=== PATIENT | male | born 1995 | race Caucasian/White ===

== ENCOUNTER 2022-04-13 17:29 | Inpatient (IN) | payer SELFPAY ==
[2022-04-13] VITALS (10 sets, daily range): BP systolic 70–129; BP diastolic 47–71; PULSE 54–113; RESP 14–21; TEMP 36.8; O2SAT 96–100; BMI 29.4
--- NOTE | 2022-04-13 17:44 | W.ED.OVERDOS ---
HPI - Overdose General: Chief Complaint: Overdose Stated Complaint: OVERDOSE Time Seen by Provider: 04/13/22 17:32 Source: patient Mode of arrival: ambulatory Limitations: no limitations History of Present Illness: 26-year-old male brought in by EMS after suicide attempt. Patient took a large number of ibuprofen and then took potentially as much as 60 mg of lorazepam concentrate 2 mg/mL. He took the lorazepam about 30 minutes prior to arrival NeoProfen about an hour and a half prior to arrival. He is sedate but still conscious and able to answer questions. He is arousable. He denies any chest pain or any other injuries. Him and his got into a fight and he took the medicines in attempt to kill himself. complaint: intentional overdose Onset (ago): hour(s) Intent: suicide attempt Context: Intentional Overdose: relationship problems Associated symptoms: depression Treatments Prior to Arrival: none Review of Systems General: Reports: Other (Limited review of systems due to patient's sedation) Const: Denies: fever(s), chills, body aches, change in appetite, fatigue or malaise ENMT: Denies: throat pain, ear or mastoid pain, nasal discharge or nasal congestion Card: Denies: chest pain, edema, dyspnea on exertion or orthopnea Resp: Denies: dyspnea, productive cough or non-productive cough GI: Denies: abdominal pain, nausea, vomiting, hematemesis, coffee ground emesis, diarrhea, constipation, bloating, hematochezia or melena : Denies: flank pain, dysuria, urinary frequency or urinary urgency Skin/Breast: Denies: rash or pruritus COUNTS INCLUDE 234 BEDS AT THE [facility] ED PFSH: Medical History No pertinent past medical history Surgical History No pertinent past surgical history Family History Denies family history of Diabetes Social History Smoking and tobacco status: current every day smoker Alcohol intake: current Alcohol intake frequency: 3 or more drinks per day Alcohol type: hard liquor Supplemental COUNTS INCLUDE 234 BEDS AT THE [facility] Information: due to medical condition and due to mental status ([facility] sedate) Physical Exam Const: GENERAL APPEARANCE: cooperative and lethargic ORIENTATION/CONSCIOUSNESS: Yes lethargic HENMT: COMMON NORMALS: normocephalic, atraumatic and hearing grossly normal bilaterally HEAD & SCALP: normocephalic and atraumatic Eye: COMMON NORMALS: Equal, round and reactive pupils present, EOMs intact bilaterally, conjunctivae normal and no scleral icterus CONJUNCTIVA: Yes conjunctivae normal PUPIL: Yes Equal, round and reactive pupils present Neck/C-Spine: COMMON NORMALS: full ROM, no lymphadenopathy, supple and no JVD Resp: COMMON NORMALS: normal respiratory effort, No retractions, No use of accessory muscles and clear to auscultation bilaterally AUSCULTATION: clear to auscultation bilaterally Cardio: COMMON NORMALS: no JVD, regular rate, regular rhythm and No murmurs present (Cardio) RATE: regular rate RHYTHM: regular rhythm GI: COMMON NORMALS: Soft to palpation and No hepatosplenomegaly present AUSCULTATION: Yes normoactive bowel sounds PALPATION: Yes Soft to palpation, No Tenderness to palpation present (GI), No Guarding due to palpation present (GI) and Yes No hepatosplenomegaly present Extremity: COMMON NORMALS: normal to inspection, capillary refill normal, no clubbing, cyanosis or edema, no calf tenderness and no pedal edema Neuro: SENSORIUM/ORIENTATION: Yes lethargic Skin: COMMON NORMALS: no rashes or lesions noted GENERAL SKIN EXAM: no rashes or lesions noted Course Vital Signs: Vital signs: Vital Signs Temperature 98.2 F 04/17/22 13:19 Pulse Rate 85 04/17/22 13:19 Respiratory Rate 18 04/17/22 13:19 Blood Pressure 129/78 04/17/22 13:19 Pulse Oximetry 97 04/17/22 13:19 MDM - Overdose Medical Decision Making Admit to ICU with psychiatry consult. Patient extremely sedated will need medical monitoring before moving to MPU. Medical Records I reviewed the patient's medical records. Lab Data I reviewed the patient's lab results. : 04/14/22 01:45 04/14/22 01:45 Radiology Impressions Chest X-Ray 04/13/22 18:00 IMPRESSION: Normal chest radiograph. Laboratory Results WBC 6.8 10^3/uL (4.0-10.0) 04/13/22 17:13 RBC 4.89 10^6/uL (4.1-5.3) 04/13/22 17:13 Hgb 14.8 g/dL (11.7-16.6) 04/13/22 17:13 Hct 43.5 % (42.0-52.0) 04/13/22 17:13 MCV 89.0 fl (80-94) 04/13/22 17:13 MCH 30.3 pg (28.0-34.0) 04/13/22 17:13 MCHC 34.0 g/dL (30.0-36.0) 04/13/22 17:13 RDW 12.3 % (12.1-15.1) 04/13/22 17:13 Plt Count 264 10^3/cmm (130-400) 04/13/22 17:13 MPV 10.6 fL (7.4-10.4) H 04/13/22 17:13 Neut % (Auto) 58.8 % 04/13/22 17:13 Lymph % (Auto) 28.9 % 04/13/22 17:13 [place] % (Auto) 9.6 % 04/13/22 17:13 Eos % (Auto) 2.1 % 04/13/22 17:13 Baso % (Auto) 0.3 % 04/13/22 17:13 Neut # (Auto) 3.99 10^3/uL (1.8-7.7) 04/13/22 17:13 Lymph # (Auto) 2.0 10^3/uL (0.8-4.8) 04/13/22 17:13 [place] # (Auto) 0.7 10^3/uL (0.2-0.9) 04/13/22 17:13 Eos # (Auto) 0.1 10^3/uL (0.0-0.8) 04/13/22 17:13 Baso # (Auto) 0.0 10^3/uL (0.0-0.1) 04/13/22 17:13 Nucleated RBC % (auto) 0 % 04/13/22 17:13 Nucleated RBCs # 0.0 /100WBC 04/13/22 17:13 Specimen Type Arterial 04/13/22 19:37 Sample Site Radial, right 04/13/22 19:37 ABG pH 7.37 (7.35-7.45) 04/13/22 19:37 ABG pCO2 43.7 mmHg (35-45) 04/13/22 19:37 ABG pO2 130.0 mmHg (80.0-100.0) H 04/13/22 19:37 ABG HCO3 24.9 mmol/L (22-26) 04/13/22 19:37 ABG Base Excess -0.6 mmol/L (-2.0-2.0) 04/13/22 19:37 Rickey Test Pos 04/13/22 19:37 Hematocrit 42.3 % (42-52) 04/13/22 19:37 O2 Delivery Device Nc 04/13/22 19:37 O2 Liters/Min 2.0 % 04/13/22 19:37 Shearing Machine Operator ID [place] 04/13/22 19:37 Sodium 139 mmol/L (136-145) 04/13/22 17:13 Potassium 3.1 mmol/L (3.5-5.1) L 04/13/22 17:13 Chloride 101 mmol/L (98-107) 04/13/22 17:13 Carbon Dioxide 21 mmol/L (22-29) L 04/13/22 17:13 Anion Gap 20.1 (5-19) H 04/13/22 17:13 BUN 11 mg/dL (6-20) 04/13/22 17:13 Creatinine 1.0 mg/dL (0.7-1.2) 04/13/22 17:13 GFR Calculation 90.3 mL/min (90-130) 04/13/22 17:13 Glucose 102 mg/dL (65-115) 04/13/22 17:13 Calculated Osmolality 288 mOsm/kg (285-295) 04/13/22 17:13 Calcium 9.1 mg/dL (8.5-10.5) 04/13/22 17:13 Total Bilirubin 0.5 mg/dL (0.15-1.2) 04/13/22 17:13 AST 25 U/L (0-40) 04/13/22 17:13 ALT 18 U/L (0-41) 04/13/22 17:13 Alkaline Phosphatase 83 IU/L (40-130) 04/13/22 17:13 Ammonia 32 umol/L (16-60) 04/13/22 19:58 Troponin T Baseline 6 ng/L (0-15) 04/13/22 19:58 Troponin T 120 Minute 6.00 ng/L (0-15) 04/13/22 21:28 Delta Troponin T 0 ABS# (0-10) 04/13/22 21:28 Total Protein 7.4 g/dL (6.6-8.7) 04/13/22 17:13 Albumin 4.5 g/dL (3.5-5.2) 04/13/22 17:13 Globulin 2.9 g/dL (1.3-4.6) 04/13/22 17:13 Urine Color [place] (Yellow) 04/13/22 18:12 Urine Appearance Clear (CLEAR) 04/13/22 18:12 Urine pH 5 (5-7) 04/13/22 18:12 Ur Specific [place] 1.020 (1.005-1.030) 04/13/22 18:12 Urine Protein Trace (Negative) 04/13/22 18:12 Urine Glucose (UA) Norm (Normal) 04/13/22 18:12 Urine Ketones 2+ (Negative) H 04/13/22 18:12 Urine Blood Neg (Negative) 04/13/22 18:12 Urine Nitrate Negative (Negative) 04/13/22 18:12 Urine Bilirubin 1+ (Negative) H 04/13/22 18:12 Urine Urobilinogen 8 mg/dL (Negative) H 04/13/22 18:12 Ur Leukocyte Esterase 1+ (Negative) H 04/13/22 18:12 Urine RBC 0-4 /hpf (0-2) H 04/13/22 18:12 Urine WBC 25-40 /hpf (0-5) H 04/13/22 18:12 Ur Squamous Epith Cells 0-4 /hpf (0-5) H 04/13/22 18:12 Amorphous Sediment Not Reportable 04/13/22 18:12 Urine Bacteria 1+ /hpf (NONE) H 04/13/22 18:12 Salicylates < 0.3 mg/dL (3-10) L 04/13/22 17:13 Urine Opiates Screen Positive ng/mL (Negative) H 04/13/22 18:12 Acetaminophen < 5.0 ug/mL (10-30) L 04/13/22 17:13 Ur Barbiturates Screen Negative ng/mL (Negative) 04/13/22 18:12 Ur Phencyclidine Scrn Negative ng/mL (Negative) 04/13/22 18:12 Ur Amphetamines Screen Negative ng/mL (Negative) 04/13/22 18:12 U Benzodiazepines Scrn Positive ng/mL (Negative) H 04/13/22 18:12 Urine Cocaine Screen Negative ng/mL (Negative) 04/13/22 18:12 U Marijuana (THC) Screen Positive ng/mL (Negative) H 04/13/22 18:12 Ethyl Alcohol < 10 mg/dL (0-10) 04/13/22 19:58 Discharge Plan Discharge Patient Disposition: Admitted As Inpatient Admit Provider: Linda Blanchard Clinical Impression: Benzodiazepine overdose, Suicide attempt by multiple drug overdose Condition: Stable Discharge Diet: Regular Discharge Activity: Resume usual activity Coding Level of Care Code ED Continuous Improvement Facilitator for Chg Fwd Exam Comprehensive
[2022-04-13 17:57] LABS: Basophils % 0.3 %; Eosinophils # 0.1 10^3/uL (0.0-0.8); Eosinophils % 2.1 %; Hematocrit 43.5 % (42.0-52.0); Hemoglobin 14.8 g/dL (11.7-16.6); Lymphocytes % 28.9 %; Mean Corpuscular Hemoglobin 30.3 pg (28.0-34.0); Mean Platelet Volume 10.6 fL (7.4-10.4); Monocytes # 0.7 10^3/uL (0.2-0.9); Monocytes % 9.6 %; Neutrophils # 3.99 10^3/uL (1.8-7.7); Neutrophils % 58.8 %; Nucleated Red Blood Cells % 0 %; Platelet Count 264 10^3/cmm (130-400); Red Blood Count 4.89 10^6/uL (4.1-5.3); Red Cell Distribution Width 12.3 % (12.1-15.1); White Blood Count 6.8 10^3/uL (4.0-10.0)
--- NOTE | 2022-04-13 18:00 | XRR_ITS ---
PROCEDURE INFORMATION: Exam: XR Chest Exam date and time: 04/13/2022 6:11 PM Age: 26 years old Clinical indication: Other: Unconscious; Additional info: Overdose TECHNIQUE: Imaging protocol: XR of the chest. Views: 1 view. COMPARISON: CR Chest 2 views* 23030 10/06/2017 12:29 PM FINDINGS: Lungs: The lungs are clear. Pleural spaces: Unremarkable. No pleural effusion. No pneumothorax. Heart/Mediastinum: Unremarkable. No cardiomegaly. Bones/joints: Unremarkable. XR/XR chest 1V portable [id number] IMPRESSION: Normal chest radiograph.
[2022-04-13] MEDS: pantoprazole 40 mg SDV 80 MG IVP (18:03)
[2022-04-13 18:08] LABS: Acetaminophen < 5.0 ug/mL (10-30); Alanine Aminotransferase 18 U/L (0-41); Albumin Level 4.5 g/dL (3.5-5.2); Alcohol Level < 10 mg/dL (0-10); Alkaline Phosphatase 83 IU/L (40-130); Anion Gap 20.1 (5-19); Aspartate Amino Transferase 25 U/L (0-40); Blood Urea Nitrogen 11 mg/dL (6-20); Calcium 9.1 mg/dL (8.5-10.5); Carbon Dioxide 21 mmol/L (22-29); Chloride 101 mmol/L (98-107); Creatinine Clr Calc Pharmacy 116.8025; Globulin 2.9 g/dL (1.3-4.6); Glomerular Filtration Rate 90.3 mL/min (90-130); Glucose 102 mg/dL (65-115); Osmolality Calculated 288 mOsm/kg (285-295); Potassium 3.1 mmol/L (3.5-5.1); Salicylate < 0.3 mg/dL (3-10); Sodium 139 mmol/L (136-145); Total Bilirubin 0.5 mg/dL (0.15-1.2); Total Protein 7.4 g/dL (6.6-8.7)
[2022-04-13 18:35] LABS: Amphetamines Screen Urine Negative (Negative); Barbiturates Screen Urine Negative (Negative); Benzodiazepines Screen Urine Positive (Negative); Cocaine Screen Urine Negative (Negative); Opiate Screen Urine Positive (Negative); PCP Screen Urine Negative (Negative); THC Screen Urine Positive (Negative)
[2022-04-13 18:39] LABS: Bilirubin Urine 1+ (Negative); Blood Urine Neg (Negative); Glucose Urine UA Norm (Normal); Ketones Urine 2+ (Negative); Nitrate Urine Negative (Negative); Protein Urine Trace (Negative); Urine Appearance Clear (CLEAR); Urine Color Orange (Yellow); pH Urine 5 (5-7)
--- NOTE | 2022-04-13 18:39 | PM.HP ---
Providers/Chief Complaint Chief Complaint: OVERDOSE History of Present Illness Nathan Feliciano is a 26 year old male who presented to hospital after suicidal attempt. After he did argument with his he tried to end his life by taking liquid lorazepam, he was told lorazepam from his [id number] storage, I looked at the bottle, as per the it was 3/4 filled, 2 mg/mL) it is 30 mL bottle. He drinks more than 2 shots of hard liquor as well. He works for his at [employer] and [employer]. In the ER he is hypertensive, bradycardic, no respiratory depression No acute indication for flumazenil, will give him 2 L bolus He is drowsy and obtunded is at the bedside In case of any signs of respite depression would use flumazenil however conservative management for now, 96-hour hold, check alcohol level Review of Systems General: Reports: ROS unobtainable due to medical condition PFSH Acute PFSH: Medical History (Updated 04/13/22 @ 19:14 by Linda Blanchard MD) No pertinent past medical history Surgical History (Updated 04/13/22 @ 19:14 by Linda Blanchard MD) No pertinent past surgical history Family History (Updated 04/13/22 @ 19:14 by Linda Blanchard MD) Denies family history of Diabetes Social History (Updated 04/13/22 @ 19:14 by Linda Blanchard MD) Smoking and tobacco status: current every day smoker Alcohol intake: current Alcohol intake frequency: 3 or more drinks per day Alcohol type: hard liquor Substance/Drug Use: current Substance/Drug use type: Marijuana Vitals/I&O/Wt Last Vital Signs Temp 98.3 F 04/13/22 17:32 Pulse 79 04/13/22 18:13 Resp 18 04/13/22 18:13 BP 129/59 04/13/22 18:13 Pulse Ox 97 04/13/22 18:13 Weight last 48 hrs Weight 85.275 kg Physical Exam Narrative: Young male Obtunded Not opening his eyes to painful stimuli Bradycardic Hypotensive Heart rate ranged between 60-65 He keeps tossing in bed changing his position however he does not open his eyes To move his extremities S1, S2 Abdomen soft Currently saturating well on 2 L nasal cannula Data : 04/13/22 17:13 04/13/22 17:13 A&P Assessment and plan (1) Benzodiazepine overdose: Status: Acute (2) Suicidal behavior with attempted self-injury: Status: Acute Plan Suicide attempt Patient took liquid lorazepam we cannot quantify the dose Conservative management for now No signs of respiratory depression Sinus bradycardia could be secondary to hypothermia I will do serial troponin and EKG Check QTC intervals For hypotension I will give him 2 L bolus I have updated ER nurse as well, ER nurses Guy Admit to ICU 96 hr hold Check alcohol level I will add thiamine and folic acid is at the bedside He is full code Clear liquid once he is more awake and alert Hold off on flumazenil, in case of any signs of respiratory depression he might qualify he does not take antidepressants or benzodiazepines at home chronically Attestations Medical Necessity Statement*: Admit to ICU with suicidal attempt, 96-hour hold Time Spent in Patient Care: 40mins Coding Level of Care Code Acute Cytopathology Technologist for Chg Fwd Diagnoses Benzodiazepine overdose T42.4X1A Suicidal behavior with attempted self-injury T14.91XA
[2022-04-13 18:40] LABS: Add Urine Culture? Yes; Add Urine Microscopic? YES; Bacteria Urine 1+ /hpf; Leukocyte Esterase Urine 1+ (Negative); RBC Urine 0-4 /hpf (0-2); Squamous Epithelial Cell Urine 0-4 /hpf (0-5); Urobilinogen Urine 8 mg/dL (Negative); WBC Urine 25-40 /hpf (0-5)
--- NOTE | 2022-04-13 19:12 | ECG_ITS ---
[facility] Test Date: 2022-04-13 Pat Name: Nathan Feliciano Department: Room: Gender: Male Skid Man: : 1995 Requested By: Linda Blanchard Order Number: [id number] Ashutosh MD: Anthony Hoover M.D. Measurements Intervals [place] Rate: 54 P: 3 W[place]: 136 QRS: 4 QRSD: 110 T: 29 QT: 444 QTc: 423 Interpretive Statements SINUS BRADYCARDIA INCOMPLETE RIGHT BUNDLE BRANCH BLOCK [90+ ms QRS DURATION, TERMINAL R IN V1/V2, 40+ ms S IN I/aVL/V4/V5/V6] No previous ECG available for comparison Electronically Signed On 04-14-2022 17:55:05 CDT by Anthony Hoover M.D. [id number]
[2022-04-13] MEDS: lactated ringers 1,000 ML 999 ML IV ×2 (19:24→23:47)
[2022-04-13 19:48] LABS: ABG PCO2 43.7 mmHg (35-45); ABG PH Result 7.37 (7.35-7.45); Arterial Blood Gas Hematocrit 42.3 % (42-52); Base Excess ABG -0.6 mmol/L (-2.0-2.0); Blood Gas Allen Test Pos; Blood Gas Operator Identificat WALCI; Blood Gas Sample Site Radial, right; Blood Gas Sample Type Arterial; HCO3 ABG 24.9 mmol/L (22-26); Oxygen Device NC
[2022-04-13 20:38] LABS: Troponin(5th) Baseline 6 ng/L (0-15)
[2022-04-13 20:40] LABS: Alcohol Level < 10 mg/dL (0-10)
[2022-04-13 20:43] LABS: Ammonia 32 umol/L (16-60)
--- NOTE | 2022-04-13 21:04 | PC.PHAR ---
pt unable to verify do to overdose. nothing in pt profile for contacts or external med history or pharmacy
[2022-04-13 21:58] LABS: Troponin 5 2HR Delta 0 ABS# (0-10)
[2022-04-14] VITALS (131 sets, daily range): BP systolic 91–143; BP diastolic 50–91; PULSE 51–94; RESP 0–26; TEMP 36.5–37.1; O2SAT 94–100; BMI 29.4
[2022-04-14] MEDS: sodium chloride 0.9% 1,000 ML 75 ML IV (00:28)
--- NOTE | 2022-04-14 01:12 | ECG_ITS ---
[facility] Test Date: 2022-04-14 Pat Name: Nathan Feliciano Department: Room: ICU10 Gender: Male Director It Project: : 1995 Requested By: Linda Blanchard Order Number: [id number] Ashutosh MD: Anthony Hoover M.D. Measurements Intervals [place] Rate: 57 P: 18 [place]: 150 QRS: 56 QRSD: 109 T: 70 QT: 423 QTc: 415 Interpretive Statements SINUS BRADYCARDIA Compared to ECG 04/13/2022 20:46:29 Incomplete right bundle-branch block no longer present Electronically Signed On 04-14-2022 18:12:09 CDT by Anthony Hoover M.D. [email or web address]/store/[id number]
[2022-04-14 03:08] LABS: Basophils % 0.3 %; Eosinophils # 0.2 10^3/uL (0.0-0.8); Eosinophils % 2.3 %; Hematocrit 42.6 % (42.0-52.0); Hemoglobin 14.1 g/dL (11.7-16.6); Lymphocytes # 1.8 10^3/uL (0.8-4.8); Lymphocytes % 18.4 %; Mean Corpuscular HGB Conc 33.1 g/dL (30.0-36.0); Mean Corpuscular Volume 90.6 fl (80-94); Mean Platelet Volume 10.9 fL (7.4-10.4); Monocytes # 0.9 10^3/uL (0.2-0.9); Monocytes % 9.5 %; Neutrophils # 6.82 10^3/uL (1.8-7.7); Neutrophils % 69.2 %; Nucleated Red Blood Cells % 0 %; Platelet Count 214 10^3/cmm (130-400); Red Cell Distribution Width 12.5 % (12.1-15.1); White Blood Count 9.9 10^3/uL (4.0-10.0)
[2022-04-14 03:42] LABS: Alanine Aminotransferase 16 U/L (0-41); Albumin Level 4.1 g/dL (3.5-5.2); Alkaline Phosphatase 79 IU/L (40-130); Aspartate Amino Transferase 20 U/L (0-40); Blood Urea Nitrogen 9 mg/dL (6-20); C Reactive Protein 22.1 mg/L (0.0-4.9); Calcium 9.1 mg/dL (8.5-10.5); Carbon Dioxide 24 mmol/L (22-29); Chloride 106 mmol/L (98-107); Creatine Phosphokinase 115 U/L (39-308); Globulin 2.7 g/dL (1.3-4.6); Glomerular Filtration Rate 116.9 mL/min (90-130); Glucose 76 mg/dL (65-115); Lactate Dehydrogenase 177 U/L (135-225); Magnesium 2.3 mg/dL (1.7-2.3); Osmolality Calculated 289 mOsm/kg (285-295); Phosphorus 3.9 mg/dL (2.5-4.5); Sodium 141 mmol/L (136-145); Total Bilirubin 0.5 mg/dL (0.15-1.2); Total Protein 6.8 g/dL (6.6-8.7)
[2022-04-14 04:07] LABS: Troponin 5 6HR Delta 0 ng/L (0-12)
--- NOTE | 2022-04-14 08:32 | PC.NURSE ---
Patient jewelry removed : Necklace, green earrings, and gold colored ring. Placed in plastic bag with patient sticker and locked in [employer] machine box number 12.
[2022-04-14] MEDS: folic acid 1 mg Tablet PO (09:23)
--- NOTE | 2022-04-14 09:54 | PC.CHAP ---
Pastoral Care Encounter/Spiritual Assessment Type of Contact [] Declined saw sharpener visit [] Patient/Family/Request visit [] Outpatient visit [] Follow-up visit [] Physician referral [] Code/Alert [x] Routine visit [] Staff referral [] Actively dying [x] Patient sleeping [] Family support [] [] Out of room [] Palliative care [] [] Receiving care in room [] Pre-surgical visit [] Trauma [] Long length of stay [x] ICU visit [x] Other: sitter Relational/Emotional Strength [] Patient feels connected with others/family/visitors/staff [] Distress [] Loneliness/isolation [] Abandonment Spirituality of Patient [] Person of [place] [] Attends Zoroastrian of their [place] [] Believes in Prayer [] Reads Bible or Taoism materials [] There are Spiritual issues to be addressed Note Teller Interventions [x] Prayer [] Active listening [] Non-anxious presence [] Spiritual/emotional support [] Crisis/trauma care [] Spiritual counseling [] Bereavement support [] Provided bereavement packet [] Provided Bible/devotional materials [] Provided toy/stuffed animal, coloring book to patient or family member [] Provided Communion [] Anointing/[place] [] Salvation [x] Completed spiritual assessment [] Other: Impact on Illness or Injury [] Angry [] Fearful [] Anxious [] Often cries [] Exhaustion [] Unable to work [] Unable to attend anabaptism [] Unable to walk/stand [] Unable to read [] Unable to drive [] Unable to eat/drink [] Unable to sleep [] Unable to be with family [] Patient intubated [] Other: Summary Time spent with patient
--- NOTE | 2022-04-14 14:34 | PM.PN ---
Subjective Subjective: Patient hemodynamically stable, tolerating diet, no respiratory depression, hemodynamically stable, discontinuing fluids, we will be able to transfer him to neuropsych today Patient is very emotionally labile stating that there is no point of living endorsing 3 through 12 times in the past few months Vitals/I&O/Wt Last Vital Signs Temp 97.9 F 04/14/22 07:30 Pulse 60 04/14/22 14:10 Resp 15 04/14/22 14:10 BP 142/78 04/14/22 14:10 Pulse Ox 98 04/14/22 14:10 04/13/22 04/14/22 04/14/22 22:59 06:59 14:59 Intake Total 1000 / 1000 1000 / 2000 1192.5 / 1192.5 Output Total 850 / 850 Balance 1000 / 1000 150 / 1150 1192.5 / 1192.5 Weight last 48 hrs Weight 85.275 kg Physical Exam Narrative: Neck Awake and alert Able to appropriately state events at home Hemodynamically stable Abdomen soft Saturating well on room air Nonfocal neuro exam No signs of respiratory depression Urinary Catheter Management: Burton: Cath Placed During This Visit: yes Reason for Continuing Indwelling Catheter: Accurate Measurement of Urinary Output in Critically Ill Patients Urinary Catheter Date of Insertion: 04/13/22 Urinary Catheter Time of Insertion: 18:00 Data : 04/14/22 01:45 04/14/22 01:45 A&P Assessment and plan (1) Suicidal behavior with attempted self-injury: Status: Acute (2) Benzodiazepine overdose: Status: Acute Plan Liquid lorazepam overdose No signs of respiratory depression Hemodynamically stable Tolerating his diet Advance diet Neuropsych does not have any beds available Will transfer once they have a bed Advance diet Continue thiamine and folic acid Patient is emotionally labile I will let Dr. Vazquez add antidepressants DVT prophylaxis not indicated patient is young and mobile Full code Attestations Medical Necessity Statement*: Can be transferred out of ICU to neuropsych Time Spent in Patient Care: 30min Coding Level of Care Code Acute Inspector Rough Castings for Parvezg Fwd Diagnoses Suicidal behavior with attempted self-injury T14.91XA Benzodiazepine overdose T42.4X1A
--- NOTE | 2022-04-14 16:28 | NUR.SHIFT ---
Patient transferred to NPU 151-1. In care of nurse and OUTREACH EDUCATOR in room. Jewelry and paper chart left with director of front office staff.
[2022-04-15 06:00] VITALS: BP 118/59; PULSE 55; RESP 17; TEMP 36.6; O2SAT 99
--- NOTE | 2022-04-15 07:34 | P.NPUHP_ITS ---
Providers/Chief Complaint Admitting Physician: Linda Blanchard MD Chief Complaint: OVERDOSE HPI NPU History of Present Illness Nahtan Feliciano is a 26 year old male who was admitted to our emergency department with the following report: HPI: [42]yo patient w/ hx of depression presenting for SI with plan. Patient was planning to jump in front of traffic. On arrival, the patient is AAOx3 and cooperative with my evaluation. No focal complaints of chest pain, shortness of breath, palpitations, N/V, focal GI/ complaints. Currently denies HI. No complaints of hallucinations. He required stabilization in the ICU for approximately 24 hours and then was transferred to the neuropsychiatry unit for definitive treatment of these issues. This last year has been very bad for him. His vufvdo-wd-zrc about 1 year ago. He happened to be there at the time and his father in law in his arms. He said many people in the family blamed everyone else for not being good enough to the xckvte-ib-lot. They also blamed him for not being a good enough to his . His wanted to have open relationships and he has had 3 affairs. His rules were that she could not fall in love with him and she must use a condom or have testing prior to having sex with these guys. She has not followed those rules. She is several times as put time with her boyfriend's ahead of time with the family. She said that it is very embarrassing for him. Her family members were considering an intervention because of her behavior. He has a full spectrum of depressive symptoms including difficulty with sleep, decreased decreased energy, decreased motivation, increased guilt, suicidal ideation and decreased self-esteem. He has several obsessive-compulsive symptoms. His game room has to be exactly his way and he gets extremely upset if anything in his game room gets disturbed. He makes his bed meticulously in the morning and immediately inspects that when he gets home and confronted his if it is not the same way that he left it. He has always had difficulty getting to sleep. He is irritable. He has difficulty concentrating. He has some social anxiety but does not have any difficulty talking to people or being out in public. His childhood was not good. His mother has been 6 times in his father twice. He says he never got anything from them. Maybe some emotional abuse but they were never providing anything more than food and a physical environment. He was very close to his xvzcks-zc-kjj and they spent a lot of time doing things. His vpfeom-cu-foz was especially interested in guns. They watched many videos about guns. He says that he has tried to get mental health treatment before but the therapist that he has seen have not been helpful. He has never had medication treatment and he has never been in the hospital. He uses some sort of cannabinoid for headaches and it helps him sleep. He denies alcohol or drug abuse otherwise. 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 He has gone from making $12,000 a year up to $90,000 a year. His is the computer hardware technician of the business and her mother also works for them. The business is still doing well. PAST PSYCHIATRIC HISTORY As above SOCIAL HISTORY As above Meds NPU Home Medications Medication Instructions Recorded Confirmed Last Taken Type Unable to Assess 04/13/22 04/13/22 Unknown History Allergies Allergy/AdvReac Type Severity Reaction Status Date / Time No Known Allergies Allergy Verified 04/14/22 00:46 PFS NPU PFS: Medical History (Updated 04/15/22 @ 07:44 by Ezra Wiggins MD) No pertinent past medical history Surgical History (Updated 04/13/22 @ 19:14 by Linda Blanchard MD) No pertinent past surgical history Family History (Updated 04/13/22 @ 19:14 by Linda Blanchard MD) Denies family history of Diabetes Social History (Updated 04/13/22 @ 19:14 by Linda Blanchard MD) Smoking and tobacco status: current every day smoker Alcohol intake: current Alcohol intake frequency: 3 or more drinks per day Alcohol type: hard liquor Substance/Drug Use: current Substance/Drug use type: Marijuana Mental Status Exam MSE Comments: This is an overweight 26-year-old male who appears approximately his stated age and is in no acute distress. He is fairly well groomed and in hospital scrubs. He is pleasant and cooperative with the evaluation. He was found at 7:15 AM doing stretching and yoga like poses in his room. psychomotor activity is normal. Speech is at a regular rate and rhythm, normal volume, good articulation, not pressured. Alert, oriented X3 Attention and concentration appears to be normal. Memory is intact Mood is depressed. Affect is moderately dysphoric. He was tearful several times during the interview. Thought process is logical and goal-directed. Thought content: Denies auditory and visual hallucinations. No delusions or paranoia are noted. Admits to suicidal ideation for some time before taking the overdose. Denies current suicidal ideation in the hospital. He denies homicidal ideation. Fund of knowledge is average. Insight and judgment appear to be fair. Impulse control is poor. Vitals/I&O/Wt Last Vital Signs Temp 97.8 F 04/15/22 06:00 Pulse 55 L 04/15/22 06:00 Resp 17 04/15/22 06:00 BP 118/59 04/15/22 06:00 Pulse Ox 99 04/15/22 06:00 Weight last 48 hrs Weight 85.275 kg Weight 85.275 kg Physical Exam Urinary Catheter Management: Burton: Cath Placed During This Visit: yes Reason for Continuing Indwelling Catheter: Accurate Measurement of Urinary O utput in Critically Ill Patients Urinary Catheter Date of Insertion: 04/13/22 Urinary Catheter Time of Insertion: 18:00 Data NPU : 04/14/22 01:45 04/14/22 01:45 A&P Assessment and plan (1) Major depressive disorder: Status: Acute (2) Anxiety: Status: Acute (3) Suicidal behavior with attempted self-injury: Status: Acute (4) Benzodiazepine overdose: Status: Acute Plan This is a 26-year-old male with anxiety and depression which have never been treated. He took an overdose of Ativan requiring ICU stabilization. Plan: 1. Continue current medication. We will start Prozac 20 mg daily along with standard as needed medications 2. Continue every 15 minute checks for safety. 3. Encourage individual, group and milieu therapies. 4. Encourage sober living treatment after discharge at the highest level of care to which he is willing to commit. 5. We will monitor for safety for himself in the community prior to discharge. Attestations NPU Medical Necessity Statement*: Inpatient hospitalization is medically necessary and the clinically appropriate intervention at this time. We will initiate medications and make changes as indicated. He will be in the hospital for over 2 midnights. Likely length of stay 4-6 days Coding Level of Care Code Acute Account Consultant for [facility] Diagnoses Major depressive disorder F32.9 Anxiety F41.9 Suicidal behavior with attempted self-injury T14.91XA Benzodiazepine overdose T42.4X1A
--- NOTE | 2022-04-15 08:55 | PC.NURSE ---
PT AROUSES TO VOICE. DENIES PAIN. DENIES SI AND VH AT THIS TIME. DOES ENDORESE HOMICIDAL THOUGHTS TOWARDS HIS FRIEND THAT WAS HAVING AN AFFAIR WITH HIS . PT STATES HE WALKED IN ON HIS AND BEST FRIEND HAVING SEX AND HAS WANTED TO HARM HIM EVER SINCE. PT ENDORSES HEARING HUMMING IN HIS EARS SINCE HE WAS E[age] YEARS OLD. STATES HE HAS NEVER BEEN TREATED FOR ANY PSYCHIATRIC ISSUES UNTIL NOW. PT WAS VERY TEAFUL AND SAD DURING INTERVIEW. SUPPORT VOICED
[2022-04-15] MEDS: OLANZapine 5 mg ODT PO (09:59)
[2022-04-15] MEDS: folic acid 1 mg Tablet PO (09:59)
[2022-04-15] MEDS: thiamine 100 mg Tablet PO (10:00)
[2022-04-15] MEDS: hyDROXYzine 25 mg Capsule 50 MG PO (11:56)
[2022-04-15 14:00] VITALS: BP 117/72; PULSE 62; RESP 18; TEMP 36.9; O2SAT 98
[2022-04-15 19:57] VITALS: BP 126/87; PULSE 82; RESP 16; TEMP 36.7; O2SAT 96
[2022-04-15] MEDS: trazodone 50 mg Tablet PO (20:14)
[2022-04-16 06:00] VITALS: BP 134/70; PULSE 84; RESP 18; TEMP 36.4; O2SAT 98
[2022-04-16] MEDS: folic acid 1 mg Tablet PO (08:32)
[2022-04-16] MEDS: fluoxetine 20 mg Capsule PO (08:32)
[2022-04-16] MEDS: thiamine 100 mg Tablet PO (08:32)
[2022-04-16 09:00] VITALS: PULSE 90; O2SAT 97
--- NOTE | 2022-04-16 13:40 | W.PM.NPUPNS ---
Subjective NPU Subjective: He continues to be fairly depressed. He said that he really was not trying to kill himself with the overdose but just trying to escape. However, he said he also had the thought that if he did from the overdose it would be good. I asked him if he wanted to be now he said no. I asked him if he was struck by lightening next week however that day and he said that would be his decision and he is okay with that. He is not a question but he does believe that there is a creator of the world who controls his peggy. He says that he has talked to his and she knows that he does not want her to continue seeing other people. He says she said she was willing to try it just like he was willing to try the open relationship. He does not think that she would like it. He says that just having a financial and parenting relationship might be an option. He had a long talk with the therapist from the [facility] program and felt that was very beneficial. Mental Status Exam MSE Comments: This is an overweight 26-year-old male who appears approximately his stated age and is in no acute distress. He is fairly well groomed and in hospital scrubs. He is pleasant and cooperative with the evaluation. He was found at 1:30 PM in Bible study. psychomotor activity is normal. Speech is at a regular rate and rhythm, normal volume, good articulation, not pressured. Alert, oriented X3 Attention and concentration appears to be normal. Memory is intact Mood is depressed but better. Affect is mildly dysphoric. Thought process is logical and goal-directed. Thought content: Denies auditory and visual hallucinations. No delusions or paranoia are noted. Admits to suicidal ideation for some time before taking the overdose. Denies current suicidal ideation in the hospital. He denies homicidal ideation. Fund of knowledge is average. Insight and judgment appear to be fair. Impulse control is poor. Cognition: Patient Appearance: Appropriate Level of Consciousness: Disoriented, Drowsy and Lethargic Patient Cognition Impaired: Yes Ability to Follow Directions: Poor Patient Orientation (long list): Person, Place and Time Hallucination Type: None Delusion Description: Not Present Thought Process: Appropriate Affect: Affect Description: Appropriate Behavior: Patient Behavior: Cooperative and Withdrawn Speech Pattern: Appropriate and Clear Vitals/I&O/Wt Last Vital Signs Temp 97.5 F L 04/16/22 06:00 Pulse 90 04/16/22 09:00 Resp 18 04/16/22 06:00 BP 134/70 04/16/22 06:00 Pulse Ox 97 04/16/22 09:00 Weight last 48 hrs Weight 85.275 kg Physical Exam Urinary Catheter Management: Burton: Cath Placed During This Visit: yes Reason for Continuing Indwelling Catheter: Accurate Measurement of Urinary Output in Critically Ill Patients Urinary Catheter Date of Insertion: 04/13/22 Urinary Catheter Time of Insertion: 18:00 Data NPU : 04/14/22 01:45 04/14/22 01:45 Micro: Microbiology 04/13/22 18:12 Urine Culture - Final Urine,Clean Catch Microbiology 04/13/22 18:12 Urine,Clean Catch Urine Culture - Final A&P Assessment and plan (1) Major depressive disorder: Status: Acute (2) Anxiety: Status: Acute (3) Suicidal behavior with attempted self-injury: Status: Acute (4) Benzodiazepine overdose: Status: Acute Plan This is a 26-year-old male with anxiety and depression which have never been treated. He took an overdose of Ativan requiring ICU stabilization. Plan: 1. Continue current medication. We will start Prozac 20 mg daily along with standard as needed medications 2. Continue every 15 minute checks for safety. 3. Encourage individual, group and milieu therapies. 4. Encourage sober living treatment after discharge at the highest level of care to which he is willing to commit. 5. We will monitor for safety for himself in the community prior to discharge. Attestations NPU Medical Necessity Statement*: Inpatient hospitalization is medically necessary and the clinically appropriate intervention at this time. We will initiate medications and make changes as indicated. Coding Level of Care Code Acute Vehicle Return Associate for [facility] Diagnoses Major depressive disorder F32.9 Anxiety F41.9 Suicidal behavior with attempted self-injury T14.91XA Benzodiazepine overdose T42.4X1A
[2022-04-16 14:00] VITALS: BP 145/76; PULSE 76; RESP 17; TEMP 36.8; O2SAT 98
[2022-04-16] MEDS: nicotine 2 mg Gum BUCCAL (17:57)
[2022-04-16] MEDS: trazodone 50 mg Tablet PO ×2 (20:20→21:47)
[2022-04-16 20:40] VITALS: BP 151/74; PULSE 73; RESP 18; TEMP 36.9; O2SAT 97
[2022-04-17 06:00] VITALS: BP 129/78; PULSE 85; RESP 18; TEMP 36.8; O2SAT 97
[2022-04-17] MEDS: thiamine 100 mg Tablet PO (09:08)
[2022-04-17] MEDS: fluoxetine 20 mg Capsule PO (09:08)
[2022-04-17] MEDS: folic acid 1 mg Tablet PO (09:08)
--- NOTE | 2022-04-17 12:15 | P.NPUDS_ITS ---
Diagnoses at Discharge Discharge Diagnosis (1) Major depressive disorder: Status: Acute (2) Anxiety: Status: Acute (3) Suicidal behavior with attempted self-injury: Status: Acute (4) Benzodiazepine overdose: Status: Acute Reason for Visit Reason for Visit: OVERDOSE Brief History: History of Present Illness Nathan Feliciano is a 26 year old male who was admitted to our emergency department with the following report: HPI: [42]yo patient w/ hx of depression presenting for SI with plan. Patient was planning to jump in front of traffic. On arrival, the patient is AAOx3 and cooperative with my evaluation. No focal complaints of chest pain, shortness of breath, palpitations, N/V, focal GI/ complaints. Currently denies HI. No complaints of hallucinations. He required stabilization in the ICU for approximately 24 hours and then was transferred to the neuropsychiatry unit for definitive treatment of these issues.? This last year has been very bad for him.? His xmznin-ec-nei about 1 year ago.? He happened to be there at the time and his father in law in his arms.? He said many people in the family blamed everyone else for not being good enough to the ltywqx-gv-duc.? They also blamed him for not being a good enough to his .? His wanted to have open relationships and he has had 3 affairs.? His rules were that she could not fall in love with him and she must use a condom or have testing prior to having sex with these guys.? She has not followed those rules.? She is several times as put time with her boyfriend's ahead of time with the family.? She said that it is very embarrassing for him.? Her family members were considering an intervention because of her behavior.? He has a full spectrum of depressive symptoms including difficulty with sleep, decreased decreased energy, decreased motivation, increased guilt, suicidal ideation and decreased self-esteem.? He has several obsessive-compulsive symptoms.? His game room has to be exactly his way and he gets extremely upset if anything in his game room gets disturbed.? He makes his bed meticulously in the morning and immediately inspects that when he gets home and confronted his if it is not the same way that he left it.? He has always had difficulty getting to sleep.? He is irritable.? He has difficulty concentrating.? He has some social anxiety but does not have any difficulty talking to people or being out in public.? His childhood was not good .? His mother has been 6 times in his father twice.? He says he never got anything from them.? Maybe some emotional abuse but they were never providing anything more than food and a physical environment.? He was very close to his qnmkgf-ed-vlu and they spent a lot of time doing things.? His czwazy-ac-erq was especially interested in guns.? They watched many videos about guns.? He says that he has tried to get mental health treatment before but the therapist that he has seen have not been helpful.? He has never had medication treatment and he has never been in the hospital.? He uses some sort of cannabinoid for headaches and it helps him sleep.? He denies alcohol or drug abuse otherwise.? 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 He has gone from making $12,000 a year up to $90,000 a year.? His is the tank inspector of the business and her mother also works for them.? The business is still doing well. Hospital Course Hospital Course He slowly acclimated to the individual, group and milieu therapies provided. He was started on Prozac 20 mg. He took trazodone 50 mg to help him sleep. He tolerated these doses and showed steady improvement during his stay. He was able to contract for safety outside hospital prior to discharge. During the hospitalization, patient had routine laboratory studies which were within normal limits except for few outliers. Additionally there was a general medical evaluation which was also within normal limits and revealed no new acute processes. Discharge Summary: At the time of discharge, lethality. He consistently denied suicidal ideation throughout the time in the neuropsychiatry unit. Mood and anxiety were well managed. Patient endorsed a plan to follow-up with the aftercare recommendations of the treatment team. Patient was evaluated and deemed to be absent credible lethality, and had achieved the maximum benefit from an inpatient hospitalization, so was discharged. Mental Status Exam MSE Comments: This is an overweight 26-year-old male who appears approximately his stated age and is in no acute distress. He is fairly well groomed and in hospital scrubs. He is pleasant and cooperative with the evaluation. He was found at 1:30 PM in Bible study. psychomotor activity is normal. Speech is at a regular rate and rhythm, normal volume, good articulation, not pressured. Alert, oriented X3 Attention and concentration appears to be normal. Memory is intact Mood is depressed but better. Affect is mildly dysphoric. Thought process is logical and goal-directed. Thought content: Denies auditory and visual hallucinations. No delusions or paranoia are noted. Denies current suicidal ideation in the hospital. He denies homicidal ideation. Fund of knowledge is average. Insight and judgment appear to be fair. Impulse control is poor. Cognition: Patient Appearance: Appropriate Level of Consciousness: Disoriented, Drowsy and Lethargic Patient Cognition Impaired: Yes Ability to Follow Directions: Poor Patient Orientation (long list): Person, Place and Time Hallucination Type: None Delusion Description: Not Present Thought Process: Appropriate Affect: Affect Description: Appropriate Behavior: Patient Behavior: Cooperative and Withdrawn Speech Pattern: Appropriate and Clear Physical Exam Urinary Catheter Management: Burton: Cath Placed During This Visit: yes Reason for Continuing Indwelling Catheter: Accurate Measurement of Urinary Output in Critically Ill Patients Urinary Catheter Date of Insertion: 04/13/22 Urinary Catheter Time of Insertion: 18:00 Discharge Data Studies Completed and Pending: Completed Studies During Hospitalization Category Date Time Status XR chest 1V dima ble [id number] Stat Exams 04/13/22 18:00 Completed Radiology Impressions Chest X-Ray 04/13/22 18:00 IMPRESSION: Normal chest radiograph. Laboratory Results WBC 9.9 10^3/uL (4.0- 10.0) 04/14/22 01:45 RBC 4.70 10^6/uL (4.1 -5.3) 04/14/22 01:45 Hgb 14.1 g/dL (11.7-1 6.6) 04/14/22 01:45 Hct 42.6 % (42.0-52.0 ) 04/14/22 01:45 MCV 90.6 fl (80-94) 04/14/22 01:45 MCH 30.0 pg (28.0-34. 0) 04/14/22 01:45 MCHC 33.1 g/dL (30.0-3 6.0) 04/14/22 01:45 RDW 12.5 % (12.1-15.1 ) 04/14/22 01:45 Plt Count 214 10^3/cmm (130 -400) 04/14/22 01:45 MPV 10.9 fL (7.4-10.4 ) H 04/14/22 01:45 Neut % (Auto) 69.2 % 04/14/22 01:45 Lymph % (Auto) 18.4 % 04/14/22 01:45 [place]inson % (Auto) 9.5 % 04/14/22 01:45 Eos % (Auto) 2.3 % 04/14/22 01:45 Baso % (Auto) 0.3 % 04/14/22 01:45 Neut # (Auto) 6.82 10^3/uL (1.8 -7.7) 04/14/22 01:45 Lymph # (Auto) 1.8 10^3/uL (0.8- 4.8) 04/14/22 01:45 Hutchinson # (Auto) 0.9 10^3/uL (0.2- 0.9) 04/14/22 01:45 Eos # (Auto) 0.2 10^3/uL (0.0- 0.8) 04/14/22 01:45 Baso # (Auto) 0.0 10^3/uL (0.0- 0.1) 04/14/22 01:45 Nucleated RBC % (a uto) 0 % 04/14/22 01:45 Nucleated RBCs # 0.0 /100WBC 04/14/22 01:45 Specimen Type Arterial 04/13/22 19:37 Sample Site Radial, right 04/13/22 19:37 ABG pH 7.37 (7.35-7.45) 04/13/22 19:37 ABG pCO2 43.7 mmHg (35-45) 04/13/22 19:37 ABG pO2 130.0 mmHg (80.0- 100.0) H 04/13/22 19:37 ABG HCO3 24.9 mmol/L (22-2 6) 04/13/22 19:37 ABG Base Excess -0.6 mmol/L (-2.0 -2.0) 04/13/22 19:37 Rickey Test Pos 04/13/22 19:37 Hematocrit 42.3 % (42-52) 04/13/22 19:37 O2 Delivery Device Nc 04/13/22 19:37 O2 Liters/Min 2.0 % 04/13/22 19:37 Logistics Team Lead ID Walci 04/13/22 19:37 Sodium 141 mmol/L (136-1 45) 04/14/22 01:45 Potassium 4.0 mmol/L (3.5-5 .1) 04/14/22 01:45 Chloride 106 mmol/L (98-10 7) 04/14/22 01:45 Carbon Dioxide 24 mmol/L (22-29) 04/14/22 01:45 Anion Gap 15.0 (5-19) 04/14/22 01:45 BUN 9 mg/dL (6-20) 04/14/22 01:45 Creatinine 0.8 mg/dL (0.7-1. 2) 04/14/22 01:45 GFR Calculation 116.9 mL/min (90- 130) 04/14/22 01:45 Glucose 76 mg/dL (65-115) 04/14/22 01:45 Calculated Osmolal ity 289 mOsm/kg (285- 295) 04/14/22 01:45 Calcium 9.1 mg/dL (8.5-10 .5) 04/14/22 01:45 Phosphorus 3.9 mg/dL (2.5-4. 5) 04/14/22 01:45 Magnesium 2.3 mg/dL (1.7-2. 3) 04/14/22 01:45 Total Bilirubin 0.5 mg/dL (0.15-1 .2) 04/14/22 01:45 AST 20 U/L (0-40) 04/14/22 01:45 ALT 16 U/L (0-41) 04/14/22 01:45 Alkaline Phosphata se 79 IU/L (40-130) 04/14/22 01:45 Ammonia 32 umol/L (16-60) 04/13/22 19:58 Lactate Dehydrogen ase 177 U/L (135-225) 04/14/22 01:45 Creatine Kinase 115 U/L (39-308) 04/14/22 01:45 Troponin T Baselin e 6 ng/L (0-15) 04/13/22 19:58 Troponin T 120 Min [place] 6.00 ng/L (0-15) 04/13/22 21:28 Delta Troponin T 0 ABS# (0-10) 04/13/22 21:28 Troponin T Hi Sens 6Hr 6.00 ng/L (0-15) 04/14/22 01:45 Troponin T Hi Sens 6Hr Delta 0 ng/L (0-12) 04/14/22 01:45 C-Reactive Protein 22.1 mg/L (0.0-4. 9) H 04/14/22 01:45 Total Protein 6.8 g/dL (6.6-8.7 ) 04/14/22 01:45 Albumin 4.1 g/dL (3.5-5.2 ) 04/14/22 01:45 Globulin 2.7 g/dL (1.3-4.6 ) 04/14/22 01:45 Urine Color Foster (Yellow) 04/13/22 18:12 Urine Appearance Clear (CLEAR) 04/13/22 18:12 Urine pH 5 (5-7) 04/13/22 18:12 Ur Specific Gravit y 1.020 (1.005-1.0 30) 04/13/22 18:12 Urine Protein Trace (Negative) 04/13/22 18:12 Urine Glucose (UA) Norm (Normal) 04/13/22 18:12 Urine Ketones 2+ (Negative) H 04/13/22 18:12 Urine Blood Neg (Negative) 04/13/22 18:12 Urine Nitrate Negative (Negati ve) 04/13/22 18:12 Urine Bilirubin 1+ (Negative) H 04/13/22 18:12 Urine Urobilinogen 8 mg/dL (Negative ) H 04/13/22 18:12 Ur Leukocyte Marj ase 1+ (Negative) H 04/13/22 18:12 Urine RBC 0-4 /hpf (0-2) H 04/13/22 18:12 Urine WBC 25-40 /hpf (0-5) H 04/13/22 18:12 Ur Squamous Epith Cells 0-4 /hpf (0-5) H 04/13/22 18:12 Amorphous Sediment Not Reportable 04/13/22 18:12 Urine Bacteria 1+ /hpf (NONE) H 04/13/22 18:12 Salicylates < 0.3 mg/dL (3-10 ) L 04/13/22 17:13 Urine Opiates Scre en Positive ng/mL (N egative) H 04/13/22 18:12 Acetaminophen < 5.0 ug/mL (10-3 0) L 04/13/22 17:13 Ur Barbiturates Sc reen Negative ng/mL (N egative) 04/13/22 18:12 Ur Phencyclidine S crn Negative ng/mL (N egative) 04/13/22 18:12 Ur Amphetamines Sc reen Negative ng/mL (N egative) 04/13/22 18:12 U Benzodiazepines Scrn Positive ng/mL (N egative) H 04/13/22 18:12 Urine Cocaine Scre en Negative ng/mL (N egative) 04/13/22 18:12 U Marijuana (THC) Screen Positive ng/mL (N egative) H 04/13/22 18:12 Ethyl Alcohol < 10 mg/dL (0-10) 04/13/22 19:58 Vitals: Last Vital Signs Temp 98.2 F 04/17/22 06:00 Pulse 85 04/17/22 06:00 Resp 18 04/17/22 06:00 BP 129/78 04/17/22 06:00 Pulse Ox 97 04/17/22 06:00 Discharge Plan Discharge Patient Disposition: Home Condition: Stable Prescriptions: New trazodone 50 mg Tablet 50 mg PO BEDTIME PRN (Reason: Insomnia) 30 Days Qty: 30 1RF fluoxetine 20 mg Capsule 20 mg PO DAILY 30 Days Qty: 30 1RF No Action Unable to Assess 0RF Discharge Orders: Discharge Order (Routine); Ordered 04/17/22 Ordered By: Ezra Wiggins Discharge Diet: Regular Discharge Activity: Resume usual activity Patient Instructions: Opioid Safety Discharge Attestations NPU Time Spent in Discharge Care*: less than 30 min Specific Discharge Activities: Specific discharge activities: educating patient, discussing with mental health case manager/social workers/dc planners, documenting/other paperwork and evaluating patient/reviewing data Coding Level of Care Code Acute Chg FW DC note Diagnoses Major depressive disorder F32.9 Anxiety F41.9 Suicidal behavior with attempted self-injury T14.91XA Benzodiazepine overdose T42.4X1A
[2022-04-17 13:19] VITALS: BP 129/78; PULSE 85; RESP 18; TEMP 36.8; O2SAT 97
== END 2022-04-17 13:55 | disposition home or self-care (01) | DRG 918 ==
LOC: ER 21:24 → ICU 22:06 → NP 04-14 16:15
PROVIDERS: Admitting Provider Internal Medicine; Emergency Provider Family Medicine; Visit Provider Internal Medicine
DX: T42.4X2A Poisoning by benzodiazepines, intentional self-harm, initial encounter (principal); F32.9 Major depressive disorder, single episode, unspecified; Z63.0 Problems in relationship with spouse or partner; I10 Essential (primary) hypertension; F17.200 Nicotine dependence, unspecified, uncomplicated; I95.9 Hypotension, unspecified; F42.9 Obsessive-compulsive disorder, unspecified; F40.10 Social phobia, unspecified
CPT/HCPCS: 36415; 36600; 51702; 71045; 80053; 80306; 80307; 81001; 82140; 82550; 82803; 83615; 83735; 84100; 84484; 85025; 86140; 87086; 93005; 96361; 96374; 97150; 97165; 99285; 99291; 99292; C9113; J3411; J7030

== ENCOUNTER 2022-04-28 17:09 | Inpatient (IN) | payer SELFPAY ==
[2022-04-28 17:14] VITALS: BP 134/78; PULSE 72; RESP 18; TEMP 36.6; O2SAT 98; BMI 29.0
--- NOTE | 2022-04-28 17:47 | ED.C_ITS ---
HPI - Psych General: Chief Complaint: Psychiatric Symptoms Stated Complaint: SI Time Seen by Provider: 04/28/22 17:16 Source: patient and EMS Mode of arrival: EMS Limitations: other (Intoxicated) History of Present Illness: 26-year-old male presents emergency room in custody of law enforcement brought in by EMS. He attempted to harm himself by taking trazodone family members are nearby and prevented it actually removed it sounds like 3 pills from his mouth. He has a prescription bottle here the [facility] staff did a count of 27 pills in the bottle it was for prescription of 30. A week ago he had tried to kill himself by using narcotics and benzodiazepines that they still had in the home from another family member had been on hospice. That was a result of an argument he had with his he had another argument with his today resulting in this episode. He does admit to having had 4 sh ots of tequila. 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 He denies any other injury at this time. At this time he is denying being suicidal. There are affidavits regarding the suicide attempt for today's episode. Onset (ago): minute(s) Relieving factors: none Exacerbating factors: none Context: recent alcohol abuse Associated psychiatric symptoms: suicidal ideation Associated symptoms: Reports depression; Deny auditory hallucinations, visual hallucinations, delusions, homicidal ideation, suicidal ideation or racing thoughts Treatments prior to arrival: placed on mental health hold and physical restraints Review of Systems Const: Denies: fever(s), chills, body aches, change in appetite, fatigue or malaise ENMT: Denies: throat pain, ear or mastoid pain, nasal discharge or nasal emy estion Card: Denies: chest pain, edema, dyspnea on exertion or orthopnea Resp: Denies: dyspnea, productive cough or non-productive cough GI: Denies: abdominal pain, nausea, vomiting, hematemesis, coffee ground emesis, diarrhea, constipation, bloating, hematochezia or melena : Denies: flank pain, dysuria, urinary frequency or urinary urgency Skin/Breast: Denies: rash or pruritus Psych: Reports: depression; Denies: visual hallucinations, auditory hallucinations, suicidal ideation or homicidal ideation PFS ED PFSH: Medical History Generalized anxiety disorder No pertinent past medical history Problems in relationship with spouse or partner Psychiatric care Vapes nicotine containing substance Surgical History No pertinent past surgical history Family History Denies family history of Diabetes Social History Smoking and tobacco status: current every day smoker Alcohol intake: current Alcohol intake frequency: 3 or more drinks per day Alcohol type: hard liquor Physical Exam Const: GENERAL APPEARANCE: cooperative and comfortable ORIENTATION/CONSCIOUSNESS: Yes awake, Yes oriented to person, Yes oriented to place and Yes oriented to time HENMT: COMMON NORMALS: normocephalic and hearing grossly normal bilaterally HEAD & SCALP: normocephalic Eye: COMMON NORMALS: Equal, round and reactive pupils present, EOMs intact bilaterally, conjunctivae normal and no scleral icterus CONJUNCTIVA: Yes conjunctivae normal PUPIL: Yes Equal, round and reactive pupils present Neck/C-Spine: COMMON NORMALS: full ROM, no lymphadenopathy, supple and no JVD Lymph: LYMPHATIC: no lymphadenopathy noted and no lymphedema noted Resp: COMMON NORMALS: normal respiratory effort, No retractions, No use of accessory muscles and clear to auscultation bilaterally AUSCULTATION: clear to auscultation bilaterally Cardio: COMMON NORMALS: no JVD, regular rate, regular rhythm and No murmurs present (Cardio) RATE: regular rate RHYTHM: regular rhythm GI: COMMON NORMALS: Soft to palpation and No hepatosplenomegaly present AUSCULTATION: Yes normoactive bowel sounds PALPATION: Yes Soft to palpation, No Tenderness to palpation present (GI), No Guarding due to palpation present (GI) and Yes No hepatosplenomegaly present Extremity: COMMON NORMALS: normal to inspection, capillary refill normal, no clubbing, cyanosis or edema, no calf tenderness and no pedal edema Neuro: SENSORIUM/ORIENTATION: Yes oriented to person, Yes oriented to place and Yes oriented to time Psych: THOUGHT CONTENT: No delusions Skin: COMMON NORMALS: no rashes or lesions noted GENERAL SKIN EXAM: no rashes or lesions noted Course Vital Signs: Vital signs: Vital Signs Temperature 98 F 04/29/22 06:00 Pulse Rate 82 04/29/22 06:00 Respiratory Rate 14 04/29/22 06:00 Blood Pressure 119/70 04/29/22 06:00 Pulse Oximetry 99 04/29/22 06:00 [facility] - Psych Medical Decision Making Suicide attempt by ingestion, patient is also intoxicated. Affidavit signed by law enforcement will place patient on a 96-hour hold. He had a similar presentation a week ago after he had gotten into an argument with his attempt to kill himself using narcotics and benzodiazepines. This time he got into an argument with his while drinking and attempted to take trazodone. Discussed Dr. Chavarria 96-hour hold completed and orders written. Medical Records I reviewed the patient's medical records. Lab Data I reviewed the patient's lab results. : 04/28/22 17:40 04/28/22 17:40 Laboratory Results WBC 15.2 10^3/uL (4.0-10.0) H 04/28/22 17:40 RBC 5.04 10^6/uL (4.1-5.3) 04/28/22 17:40 Hgb 15.1 g/dL (11.7-16.6) 04/28/22 17:40 Hct 43.6 % (42.0-52.0) 04/28/22 17:40 MCV 86.5 fl (80-94) 04/28/22 17:40 MCH 30.0 pg (28.0-34.0) 04/28/22 17:40 MCHC 34.6 g/dL (30.0-36.0) 04/28/22 17:40 RDW 12.9 % (12.1-15.1) 04/28/22 17:40 Plt Count 331 10^3/cmm (130-400) 04/28/22 17:40 MPV 11.1 fL (7.4-10.4) H 04/28/22 17:40 Neut % (Auto) 85.0 % 04/28/22 17:40 Lymph % (Auto) 7.7 % 04/28/22 17:40 Cla[place]orne % (Auto) 6.4 % 04/28/22 17:40 Eos % (Auto) 0.1 % 04/28/22 17:40 Baso % (Auto) 0.3 % 04/28/22 17:40 Neut # (Auto) 12.96 10^3/uL (1.8-7.7) H 04/28/22 17:40 Lymph # (Auto) 1.2 10^3/uL (0.8-4.8) 04/28/22 17:40 Claiborne # (Auto) 1.0 10^3/uL (0.2-0.9) H 04/28/22 17:40 Eos # (Auto) 0.0 10^3/uL (0.0-0.8) 04/28/22 17:40 Baso # (Auto) 0.0 10^3/uL (0.0-0.1) 04/28/22 17:40 Nucleated RBC % (auto) 0 % 04/28/22 17:40 Nucleated RBCs # 0.0 /100WBC 04/28/22 17:40 Sodium 139 mmol/L (136-145) 04/28/22 17:40 Potassium 3.7 mmol/L (3.5-5.1) 04/28/22 17:40 Chloride 103 mmol/L (98-107) 04/28/22 17:40 Carbon Dioxide 20 mmol/L (22-29) L 04/28/22 17:40 Anion Gap 19.7 (5-19) H 04/28/22 17:40 BUN 9 mg/dL (6-20) 04/28/22 17:40 Creatinine 0.8 mg/dL (0.7-1.2) 04/28/22 17:40 GFR Calculation 116.9 mL/min (90-130) 04/28/22 17:40 Glucose 95 mg/dL (65-115) 04/28/22 17:40 Calculated Osmolality 286 mOsm/kg (285-295) 04/28/22 17:40 Calcium 9.5 mg/dL (8.5-10.5) 04/28/22 17:40 Total Bilirubin 0.4 mg/dL (0.15-1.2) 04/28/22 17:40 AST 51 U/L (0-40) H 04/28/22 17:40 ALT 35 U/L (0-41) 04/28/22 17:40 Alkaline Phosphatase 69 IU/L (40-130) 04/28/22 17:40 Total Protein 7.5 g/dL (6.6-8.7) 04/28/22 17:40 Albumin 4.8 g/dL (3.5-5.2) 04/28/22 17:40 Globulin 2.7 g/dL (1.3-4.6) 04/28/22 17:40 Urine Color Yellow (Yellow) 04/28/22 17:28 Urine Appearance Clear (CLEAR) 04/28/22 17:28 Urine pH 5 (5-7) 04/28/22 17:28 Ur Specific Bovey 1.020 (1.005-1.030) 04/28/22 17:28 Urine Protein Trace (Negative) 04/28/22 17: Urine Glucose (UA) Norm (Normal) 04/28/22 17: Urine Ketones Negative (Negative) 04/28/22 17:28 Urine Blood 2+ (Negative) H 04/28/22 17:28 Urine Nitrate Negative (Negative) 04/28/22 17: Urine Bilirubin Neg (Negative) 04/28/22 17:28 Urine Urobilinogen Norm mg/dL (Negative) 04/28/22 17:28 Ur Leukocyte Esterase Negative (Negative) 04/28/22 17:28 Urine RBC 0-4 /hpf (0-2) H 04/28/22 17:28 Urine WBC 0-4 /hpf (0-5) H 04/28/22 17:28 Ur Squamous Epith Cells 0-4 /hpf (0-5) H 04/28/22 17:28 Amorphous Sediment Not Reportable 04/28/22 17:28 Urine Bacteria 1+ /hpf (NONE) H 04/28/22 17:28 Hyaline Casts 0-4 /lpf H 04/28/22 17:28 Urine Mucus 1+ /hpf 04/28/22 17:28 Salicylates 0.7 mg/dL (3-10) L 04/28/22 17:40 Urine Opiates Screen Negative ng/mL (Negative) 04/28/22 17:28 Acetaminophen < 5.0 ug/mL (10-30) L 04/28/22 17:40 Ur Barbiturates Screen Negative ng/mL (Negative) 04/28/22 17:28 Ur Phencyclidine Scrn Negative ng/mL (Negative) 04/28/22 17:28 Ur Amphetamines Screen Negative ng/mL (Negative) 04/28/22 17:28 U Benzodiazepines Scrn Negative ng/mL (Negative) 04/28/22 17:28 Urine Cocaine Screen Negative ng/mL (Negative) 04/28/22 17:28 U Marijuana (THC) Screen Positive ng/mL (Negative) H 04/28/22 17:28 Discharge Plan Discharge Patient Disposition: Admitted As Inpatient Admit Provider: Roberto Carlos Chavarria Clinical Impression: Suicidal ideation Condition: Stable Coding Level of Care Code ED Biometrician for Kat Fwd Exam Comprehensive
[2022-04-28 17:54] LABS: Basophils % 0.3 %; Eosinophils % 0.1 %; Hematocrit 43.6 % (42.0-52.0); Hemoglobin 15.1 g/dL (11.7-16.6); Lymphocytes # 1.2 10^3/uL (0.8-4.8); Lymphocytes % 7.7 %; Mean Corpuscular HGB Conc 34.6 g/dL (30.0-36.0); Mean Corpuscular Volume 86.5 fl (80-94); Mean Platelet Volume 11.1 fL (7.4-10.4); Monocytes % 6.4 %; Neutrophils # 12.96 10^3/uL (1.8-7.7); Nucleated Red Blood Cells % 0 %; Platelet Count 331 10^3/cmm (130-400); Red Blood Count 5.04 10^6/uL (4.1-5.3); Red Cell Distribution Width 12.9 % (12.1-15.1); White Blood Count 15.2 10^3/uL (4.0-10.0)
--- NOTE | 2022-04-28 18:15 | PC.NURSE ---
Angry, attempted to leave unit, shouting at staff, hitting himself in the head multiple times. Security here on standby.
[2022-04-28 18:18] LABS: Amphetamines Screen Urine Negative (Negative); Barbiturates Screen Urine Negative (Negative); Benzodiazepines Screen Urine Negative (Negative); Cocaine Screen Urine Negative (Negative); Opiate Screen Urine Negative (Negative); PCP Screen Urine Negative (Negative); THC Screen Urine Positive (Negative)
[2022-04-28 18:19] LABS: Alanine Aminotransferase 35 U/L (0-41); Albumin Level 4.8 g/dL (3.5-5.2); Alkaline Phosphatase 69 IU/L (40-130); Anion Gap 19.7 (5-19); Aspartate Amino Transferase 51 U/L (0-40); Blood Urea Nitrogen 9 mg/dL (6-20); Calcium 9.5 mg/dL (8.5-10.5); Carbon Dioxide 20 mmol/L (22-29); Chloride 103 mmol/L (98-107); Globulin 2.7 g/dL (1.3-4.6); Glomerular Filtration Rate 116.9 mL/min (90-130); Glucose 95 mg/dL (65-115); Osmolality Calculated 286 mOsm/kg (285-295); Potassium 3.7 mmol/L (3.5-5.1); Salicylate 0.7 mg/dL (3-10); Sodium 139 mmol/L (136-145); Total Bilirubin 0.4 mg/dL (0.15-1.2); Total Protein 7.5 g/dL (6.6-8.7)
[2022-04-28 18:27] LABS: Acetaminophen < 5.0 ug/mL (10-30)
[2022-04-28 18:27] LABS: Glucose Urine UA Norm (Normal); Protein Urine Trace (Negative); Urine Appearance Clear (CLEAR); Urine Color Yellow (Yellow); pH Urine 5 (5-7)
[2022-04-28 18:28] LABS: Add Urine Culture? Yes; Add Urine Microscopic? YES; Bacteria Urine 1+ /hpf; Bilirubin Urine Neg (Negative); Blood Urine 2+ (Negative); Hyaline Casts Urine 0-4 /lpf; Ketones Urine Negative (Negative); Leukocyte Esterase Urine Negative (Negative); Mucus Urine 1+ /hpf; Nitrate Urine Negative (Negative); RBC Urine 0-4 /hpf (0-2); Squamous Epithelial Cell Urine 0-4 /hpf (0-5); Urobilinogen Urine Norm (Negative); WBC Urine 0-4 /hpf (0-5)
[2022-04-28 20:10] VITALS: BP 132/83; PULSE 61; RESP 20; TEMP 36.6; O2SAT 98
[2022-04-29 06:00] VITALS: BP 119/70; PULSE 82; RESP 14; TEMP 36.6; O2SAT 99
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
[2022-04-29] MEDS: fluoxetine 20 mg Capsule PO (09:47)
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
[2022-04-29 14:00] VITALS: BP 137/73; PULSE 59; RESP 16; TEMP 37.1; O2SAT 97
[2022-04-29 21:08] VITALS: BP 141/73; PULSE 58; RESP 18; TEMP 36.7; O2SAT 97
[2022-04-30 06:00] VITALS: BP 109/67; PULSE 74; RESP 17; TEMP 36.3; O2SAT 98
[2022-04-30] MEDS: fluoxetine 20 mg Capsule PO (09:29)
[2022-04-30 14:00] VITALS: BP 158/81; PULSE 65; RESP 16; O2SAT 96
--- NOTE | 2022-04-30 17:29 | P.NPUPN_ITS ---
Subjective NPU Subjective: Patient presents today reporting that he feels like he has a solid plan for dealing with his . 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 He reports that being here has been good and that he needed some time to think about how to proceed. He reports that he finally spoke to his and they are trying to navigate how they return to the house would work without continued outbursts and aggression. We discussed the likelihood of discharge in the next 48 hours. Mental Status Exam MSE Comments: This is a well nourished, well developed white male in hospital scrubs with scraps and abrasions across his face and arms with adequate grooming and eye contact. No abnormal movements except for mild psychomotor retardation. Cooperative with exam in no acute distress. Speech was normal rate and volume. Mood described as getting better, affect is congruent. Thought process, organized. Thought content: patient denies any suicidal or homicidal ideation, reports paranoia but no delusions noted, and denies any auditory or visual hallucinations. Attention and concentration are intact and memory appeared reliable though none were formally tested. He is alert and oriented three times. Insight and judgment are limited. Impulse control is fair. Vitals/I&O/Wt Last Vital Signs Temp 98.5 F 04/30/22 20:16 Pulse 67 04/30/22 20:16 Resp 16 04/30/22 20:16 BP 122/81 04/30/22 20:16 Pulse Ox 97 04/30/22 20:16 Data NPU : 04/28/22 17:40 04/28/22 17:40 Micro: Microbiology 04/28/22 17:28 Urine Culture - Final Urine,Clean Catch Microbiology 04/28/22 17:28 Urine,Clean Catch Urine Culture - Final A&P Assessment and plan (1) Suicidal ideation: Status: Acute (2) Generalized anxiety disorder: Status: Acute (3) Problems in relationship with spouse or partner: Status: Acute (4) Vapes nicotine containing substance: Status: Acute (5) Major depressive disorder: Status: Acute Plan This is a 26 year old white male with recent partner relational problems secondary to infidelity with genetic loading for mental health and addiction issues who presents to the hospital secondary to an episode of intoxication. We discussed the risks, benefits and alternatives of continuing his current medications and he understood and agreed to proceed as is documented in this note. 1. Continue current medications 2. Encourage individual, group and milieu therapy 3. Continue q-15 minute check for safety 4. Recommend sober living treatment at the highest level of care to which the patient is willing to commit. Involuntary Hold Information 96 Hour Hold: 96 Hour Involuntary Admission: Yes 96 Hour Hold Ending Date: 05/04/22 96 Hour Hold Ending Time: 20:10 Attestations NPU Medical Necessity Statement*: Inpatient hospitalization is medically necessary and the clinically appropriate intervention at this time. We will monitor medications and make changes as indicated. Likely length of stay is 1-3 days. 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
[2022-04-30 20:16] VITALS: BP 122/81; PULSE 67; RESP 16; TEMP 36.9; O2SAT 97
[2022-05-01 06:00] VITALS: BP 131/75; PULSE 79; RESP 16; TEMP 36.6; O2SAT 98
[2022-05-01] MEDS: fluoxetine 20 mg Capsule PO (10:39)
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
[2022-05-01 12:04] VITALS: BP 131/75; PULSE 79; RESP 16; TEMP 36.6; O2SAT 98
== END 2022-05-01 12:17 | disposition home or self-care (01) | DRG 881 ==
LOC: ER 17:52 → NP 04-29 04:35
PROVIDERS: Admitting Provider Psychiatry & Neurology Psychiatry; Emergency Provider Family Medicine; Visit Provider Psychiatry & Neurology Psychiatry
DX: F32.9 Major depressive disorder, single episode, unspecified (principal); R45.851 Suicidal ideations; F41.1 Generalized anxiety disorder; F10.129 Alcohol abuse with intoxication, unspecified; Z63.0 Problems in relationship with spouse or partner; Z91.51 Personal history of suicidal behavior; Z81.8 Family history of other mental and behavioral disorders; Z81.4 Family history of other substance abuse and dependence; Z62.898 Other specified problems related to upbringing; Z72.0 Tobacco use
CPT/HCPCS: 80053; 80306; 80307; 81001; 85025; 87086; 97150; 97165; 99285

== ENCOUNTER 2022-09-23 15:15 | Emergency (ER) | payer SELFPAY ==
[2022-09-23 15:20] VITALS: BP 148/84; PULSE 80; RESP 14; TEMP 36.4; O2SAT 97; BMI 28.1
--- NOTE | 2022-09-23 15:30 | ED_ITS ---
HPI - Animal Bite General: Chief Complaint: Animal Bite Stated Complaint: Dog Bite Time Seen by Provider: 09/23/22 15:17 History of Present Illness: Patient is a 26-year-old male comes to the ED after dog bite. Patient was was attacked by a dog that came into his yard. Dog bit his right posterior thigh. The health department called him today and told that the dog is unvaccinated that he should be treated for rabies. He has no other complaints besides a dog bite. Denies any purulent drainage around dog bite site. Patient needs booster shot for tetanus. Associated symptoms: Deny chills, fever(s) or headache(s) Review of Systems Const: Denies: fever(s), chills or fatigue Eyes: Denies: change in vision or eye discomfort ENMT: Denies: throat pain, odynophagia, nasal discharge or nasal congestion Card: Denies: chest pain, palpitations, edema, swelling of feet/ankles, dyspn ea on exertion or orthopnea Resp: Denies: dyspnea, productive cough or non-productive cough GI: Denies: abdominal pain, nausea, vomiting, diarrhea, constipation or hematochezia : Denies: flank pain, difficulty urinating, dysuria or hematuria Musc: Denies: neck pain, back pain or extremity swelling Skin/Breast: Reports: new lesions (Dog bite on right posterior thigh); Denies: rash Neuro: Denies: headache(s), numbness in extremities or weakness in extremities PFS ED PFSH: Medical History Generalized anxiety disorder No pertinent past medical history Problems in relationship with spouse or partner Psychiatric care Vapes nicotine containing substance Surgical History No pertinent past surgical history Family History Denies family history of Diabetes Social History Smoking and tobacco status: current every day smoker Alcohol intake: current Alcohol intake frequency: 3 or more drinks per day Alcohol type: hard liquor Physical Exam Const: COMMON NORMALS: no acute distress, patient oriented x3, healthy appearing and alert GENERAL APPEARANCE: cooperative and comfortable HENMT: COMMON NORMALS: normocephalic HEAD & SCALP: normocephalic MOUTH: Normal oral and palatal mucosa present THROAT: posterior oropharynx normal and uvula midline Neck/C-Spine: COMMON NORMALS: supple GENERAL: Yes normal visual inspection Resp: COMMON NORMALS: normal respiratory effort, No retractions, No use of accessory muscles and clear to auscultation bilaterally AUSCULTATION: clear to auscultation bilaterally Cardio: COMMON NORMALS: regular rate, regular rhythm, S1 normal heart sound present, S2 normal heart sound present, No gallops present (Cardio), No clicks present (Cardio), No murmurs present (Cardio) and Peripheral pulses 2+ throughout RATE: regular rate RHYTHM: regular rhythm HEART SOUNDS: S1 normal heart sound present and S2 normal heart sound present PERIPHERAL PULSES: Peripheral pulses 2+ throughout GI: COMMON NORMALS: Normal to inspection, nondistended, normoactive bowel sounds present, Soft to palpation, non-tender and no masses PALPATION: Yes Soft to palpation : COMMON NORMALS: Yes no CVA tenderness BLADDER/KIDNEY EXAM: Yes no CVA tenderness Back/Pelvis: COMMON NORMALS: no CVA tenderness Extremity: NARRATIVE EXTREMITY EXAM: Superficial small puncture wounds to upper posterior aspect of right thigh. No erythema, warmth or purulent drainage noted. No active bleeding. Neuro: COMMON NORMALS: patient oriented x3 SENSORIUM/ORIENTATION: Yes alert GAIT: Yes Normal gait present Skin: GENERAL SKIN EXAM: dry skin Course Vital Signs: Vital signs: Vital Signs Temperature 97.6 F 09/23/22 16:22 Pulse Rate 82 09/23/22 16:22 Respiratory Rate 18 09/23/22 16:22 Blood Pressure 140/76 09/23/22 16:22 Pulse Oximetry 99 09/23/22 16:22 Oxygen Delivery Mt thod 09/23/22 15:20 MDM - Animal Bite Medical Decision Making Patient is a 26-year-old male who got bit by a dog in the right upper thigh yesterday. He was told by the health department the dog was not vaccinated and he needs to come to the ED to get rabies vaccinations. He has no other complaints. He has a superficial dog bite to proximal posterior aspect of right thigh. No signs of cellulitis noted. Vitals are stable. Patient was given rabies IM and rabies immunoglobulin shots. He was also given his updated tetanus. He was stable for discharge home and told to come back to the ED to get next rabies shot on September 26. Patient was discharged home with a prescription for Augmentin as well. Return ED precautions given. Patient understood agree with plan. Discharge Plan Discharge Patient Disposition: Home Clinical Impression: Need for post exposure prophylaxis for rabies Dog bite Qualifiers: Encounter type: initial encounter Qualified Code(s): W54.0XXA - Bitten by dog, initial encounter Condition: Stable Prescriptions: New Augmentin 500-125 mg tablet 1 tab PO BID 7 Days Qty: 14 0RF No Action trazodone 50 mg Tablet 50 mg PO BEDTIME PRN (Reason: Insomnia) 30 Days Qty: 30 1RF fluoxetine 20 mg Capsule 20 mg PO DAILY 30 Days Qty: 30 1RF Discharge Orders: Discharge ED (Routine); Ordered 09/23/22 Ordered By: Jimmie Reyes Discharge Diet: Regular Discharge Activity: Resume usual activity Patient Instructions: Rabies Vaccine (By injection), Rabies Immune Globulin (By injection), Animal Bite (ED) Activity Restrictions/Additional Instructions: Follow-up with medical provider as directed. Clean dog bite wound with soap and water daily and apply triple antibiotic ointment on it. Return to the ED for rabies vaccination dose on day 3 (09/26), 7(09/30) and 14 (10/07). take medications as prescribed. Return to the ER or your medical provider if condition worsens. Please read and understand discharge instructions. If any questions, please ask. Coding Level of Care Code ED Homeowner Association Manager for Kat Judge Exam Comprehensive
[2022-09-23] MEDS: tetanus-dipt-pertussis 0.5 mL SDV IM (16:18)
[2022-09-23] MEDS: rabies vaccine 2.5 unit SDV IM (16:20)
[2022-09-23 16:22] VITALS: BP 140/76; PULSE 82; RESP 18; TEMP 36.4; O2SAT 99
== END 2022-09-23 16:15 | disposition home or self-care (01) ==
PROVIDERS: Emergency Provider Physician Assistant
DX: S71.151A Open bite, right thigh, initial encounter (principal); W54.0XXA Bitten by dog, initial encounter; Z29.14 Encounter for prophylactic rabies immune globulin; Z20.3 Contact with and (suspected) exposure to rabies; F17.210 Nicotine dependence, cigarettes, uncomplicated; Z23 Encounter for immunization
CPT/HCPCS: 90375; 90471; 90675; 90715; 99283

== ENCOUNTER 2022-09-27 09:21 | Emergency (ER) | payer SELFPAY ==
[2022-09-27 09:29] VITALS: BP 116/62; PULSE 80; RESP 16; TEMP 36.3; O2SAT 98
--- NOTE | 2022-09-27 10:12 | ED_ITS ---
HPI - General Adult General: Chief complaint: General Medical Stated complaint: needs 2nd round of rabies shot Time Seen by Provider: 09/27/22 09:40 History of Present Illness: 26-year-old male presents for a rabies shot for a postexposure prophylaxis. Patient has been following up with urgent care to receive his shots but the clinic was not open today. Patient is due for shot today. Patient had a dog bite on the and is due for his second shot today. Patient has no complaints at this time Review of Systems General: Reports: 10 or more systems reviewed and unremarkable except in HPI and below PFSH ED PFSH: Medical History Generalized anxiety disorder No pertinent past medical history Problems in relationship with spouse or partner Psychiatric care Vapes nicotine containing substance Surgical History No pertinent past surgical history Family History Denies family history of Diabetes Social History Smoking and tobacco status: current every day smoker Alcohol intake: current Alcohol intake frequency: 3 or more drinks per day Alcohol type: hard liquor Physical Exam Const: COMMON NORMALS: no acute distress, patient oriented x3 and no limitations Resp: COMMON NORMALS: normal respiratory effort, No retractions and No use of accessory muscles Cardio: COMMON NORMALS: regular rate and regular rhythm RATE: regular rate RHYTHM: regular rhythm Extremity: COMMON NORMALS: full ROM and capillary refill normal Neuro: COMMON NORMALS: patient oriented x3 and CN's II-XII intact bilaterally Skin: COMMON NORMALS: turgor normal GENERAL SKIN EXAM: turgor normal Course Vital Signs: Vital signs: Vital Signs Temperature 97.3 F L 09/27/22 09:29 Pulse Rate 80 09/27/22 09:29 Respiratory Rate 16 09/27/22 09:29 Blood Pressure 116/62 09/27/22 09:29 Pulse Oximetry 98 09/27/22 09:29 [facility] - General Adult Medical Decision Making Patient provided second shot in his rabies postexposure prophylaxis series and discharged home Discharge Plan Discharge Patient Disposition: Home Clinical Impression: Need for post exposure prophylaxis for rabies Condition: Stable Prescriptions: No Action trazodone 50 mg Tablet 50 mg PO BEDTIME PRN (Reason: Insomnia) 30 Days Qty: 30 1RF fluoxetine 20 mg Capsule 20 mg PO DAILY 30 Days Qty: 30 1RF Augmentin 500-125 mg tablet 1 tab PO BID 7 Days Qty: 14 0RF Discharge Orders: Discharge ED (Routine); Ordered 09/27/22 Ordered By: Hermilo Cortes Discharge Diet: Usual diet Discharge Activity: Resume usual activity Patient Instructions: Rabies Vaccine (By injection), Opioid Safety, Pain Management Activity Restrictions/Additional Instructions: Follow-up with your primary care provider as needed Coding Level of Care Code ED Seed Tester for Chg Fwd Exam Detailed
[2022-09-27] MEDS: rabies vaccine 2.5 unit SDV IM (10:33)
== END 2022-09-27 10:35 | disposition home or self-care (01) ==
PROVIDERS: Emergency Provider Student in an Organized Health Care Education/Training Program
DX: Z29.14 Encounter for prophylactic rabies immune globulin (principal); Z20.3 Contact with and (suspected) exposure to rabies; F17.210 Nicotine dependence, cigarettes, uncomplicated
CPT/HCPCS: 90471; 90675; 99283

== ENCOUNTER 2024-05-23 11:52 | Emergency (ER) | payer OTHER, SELFPAY ==
[2024-05-23 11:53] VITALS: BP 133/82; PULSE 65; RESP 18; TEMP 37; O2SAT 99
--- NOTE | 2024-05-23 12:19 | W.ED.WOUNDLC ---
HPI - Wound/Laceration General: Chief Complaint: Wound/Laceration Stated Complaint: laceration on your finger Time Seen by Provider: 05/23/24 12:00 Source: patient Mode of arrival: ambulatory Limitations: no limitations History of Present Illness: Patient is a 28-year-old male presents to ED today for evaluation of a laceration to his left index finger that he sustained just prior to arrival after accidentally cutting it on a box knife razor blade. Tetanus is up-to-date. Bleeding is controlled upon arrival. Denies numbness, tingling, loss of sensation. Onset (ago): hour(s) Extremity Location: Left: hand (index finger) Place: home Patient tetanus UTD: Yes Context: accidental Associated symptoms: Reports no associated symptoms Treatments prior to arrival: bandage Review of Systems Musc: Reports: extremity pain Skin/Breast: Reports: other (laceration) Neuro: Denies: numbness in extremities or sensory changes PFSH ED PFSH: Medical History Generalized anxiety disorder Problems in relationship with spouse or partner Vapes nicotine containing substance No pertinent past medical history Surgical History No pertinent past surgical history Family History Denies family history of Diabetes Social History Smoking and tobacco/nicotine status: current every day tobacco/nicotine user Alcohol intake: current Alcohol intake frequency: 3 or more drinks per day Alcohol type: hard liquor Substance/Drug Use: current Physical Exam Const: COMMON NORMALS: no acute distress, average body habitus, no limitations, healthy appearing, alert and well nourished Extremity: COMMON NORMALS: full ROM and capillary refill normal GENERAL: Yes normal exam except as noted LEFT UPPER EXTREMITY: Yes hand & digits (2.0cm laceration dorsal L index finger overlying proximal phalanx) Left hand and digits: Yes ROM (normal), Yes neurovascular exam (normal) and Yes tendon exam (normal) Neuro: COMMON NORMALS: moves all extremities, no focal motor deficits and no sensory deficits noted SENSORIUM/ORIENTATION: Yes alert Skin: TRAUMA: laceration Procedures Laceration Laceration 1: Site: hand (index finger) Side (If applicable): left Size (cm): 2.0 Description: linear Depth: simple, single layer Local Anesthetic: lidocaine 1% Amount of anesthesia used (mL): 2.0 Pre-repair: wound explored and irrigated extensively Skin layer closed with: nylon Size (cm): 5-0 Number of sutures: 4 Technique: simple, interrupted Course Vital Signs: Vital signs: Vital Signs Temperature 98.6 F 05/23/24 11:53 Pulse Rate 65 05/23/24 11:53 Respiratory Rate 18 05/23/24 11:53 Blood Pressure 133/82 05/23/24 11:53 Pulse Oximetry 99 05/23/24 11:53 Oxygen Delivery Me thod Room Air 05/23/24 11:53 MDM - Wound/Laceration Medical Decision Making XR unremarkable. Wound copiously irrigated and repaired as documented. Wound care/infection precautions discussed. Differential Diagnosis Likely laceration Medical Records I reviewed the patient's medical records. XR interpretation done by ED provider, pending radiology final review Discharge Plan Discharge Patient Disposition: Home Clinical Impression: Laceration of left index finger Qualifiers: Encounter type: initial encounter Damage to nail status: without damage Foreign body presence: without foreign body Qualified Code(s): S61.211A - Laceration without foreign body of left index finger without damage to nail, initial encounter Condition: Stable Prescriptions: No Action trazodone 50 mg Tablet 50 mg PO BEDTIME PRN (Reason: Insomnia) 30 Days Qty: 30 1RF fluoxetine 20 mg Capsule 20 mg PO DAILY 30 Days Qty: 30 1RF Discharge Orders: Discharge ED (Routine); Ordered 05/23/24 Ordered By: Aurora Celaya Patient Instructions: Finger Laceration (ED) Activity Restrictions/Additional Instructions: Keep wound/laceration clean with warm soap and water twice daily. Monitor for signs of infection such as redness, swelling, increased pain, or drainage. Please seek medical re-evaluation if these occur. If you received sutures today these will need to be removed. The provider should have discussed with you the length of time until removal-7 DAYS. Coding Level of Care Code ED Final Finisher for Kat Judge
--- NOTE | 2024-05-23 12:21 | XRR_ITS ---
PROCEDURE INFORMATION: Exam: XR Left Finger(s) Exam date and time: 05/23/2024 12:35 PM Age: 28 years old Clinical indication: Injury or trauma; Other: Laceration; Left; Index finger; Additional info: Index; Laceration TECHNIQUE: Imaging protocol: Radiologic exam of the left fingers. Views: Minimum 2 views. COMPARISON: No relevant prior studies available. FINDINGS: Bones/joints: Normal. Soft tissues: Unremarkable. XR/XR finger LT min 2V [id number] IMPRESSION: No acute findings.
== END 2024-05-23 13:18 | disposition home or self-care (01) ==
PROVIDERS: Emergency Provider Physician Assistant
DX: S61.211A Laceration without foreign body of left index finger without damage to nail, initial encounter (principal); Z72.0 Tobacco use; W26.0XXA Contact with knife, initial encounter
CPT/HCPCS: 12001; 73140; 99283